=== PATIENT | female | born 1950 | race Caucasian/White ===

== ENCOUNTER 2021-04-12 15:21 | Emergency (ER) | payer MEDICARE, OTHER ==
[2021-04-12 19:04] LABS: HEMOGLOBIN 13.4 gm/dl (12.3-15.3); RED BLOOD COUNT 4.3 M/UL (4.00-5.10); WHITE BLOOD COUNT 13.1 K/UL (4.5-11.0)
[2021-04-12 19:25] LABS: BUN/CREATININE RATIO 18 (0-10)
[2021-04-12] MEDS ORDERED: HYDROCODON-ACE1 EAC4 PO (21:51)
[2021-04-12] MEDS ORDERED: CIPROFLOXACIN750 MG PO (21:55)
[2021-04-12] MEDS ORDERED: METRONIDAZOLE500 MG PO (21:55)
== END 2021-04-12 22:40 | disposition home or self-care (01) ==
LOC: ER1 15:21
PROVIDERS: Physician Assistant
DX: K60.4 Rectal fistula (principal); Z88.0 Allergy status to penicillin; E11.9 Type 2 diabetes mellitus without complications; F17.210 Nicotine dependence, cigarettes, uncomplicated
CPT/HCPCS: 80053; 81001; 83605; 85025; 87040; 96374; 99284; J2270; Q9967